=== PATIENT | male | born 1940 | race Caucasian/White ===

== ENCOUNTER → 2016-12-19 | Outpatient (CLI) | payer MEDICARE, BC | END | disposition home or self-care (01) | LOC: PCVCCLINIC 15:00 | PROVIDERS: ATTEND Internal Medicine | DX: I25.10 Atherosclerotic heart disease of native coronary artery without angina pectoris (principal); I10 Essential (primary) hypertension; E78.5 Hyperlipidemia, unspecified; I65.29 Occlusion and stenosis of unspecified carotid artery; Z95.1 Presence of aortocoronary bypass graft | CPT/HCPCS: 80061; 93005; G0463 ==

== ENCOUNTER → 2017-07-03 | Outpatient (CLI) | payer MEDICARE, BC ==
--- NOTE | 2017-07-03 13:35 | PCVCIMAG ---
APPROVED REPORT Indications Stenosis Risk Factors Hypertension: Hyperlipidemia Doppler Spectral Velocity Analysis PSV / EDVPSV / EDV ECA (R) 96 / 9 cm/sECA (L) 91 / 7 cm/s dICA (R) 58 / 14 cm/sdICA (L) 61 / 18 cm/s Foreign (R) 109 / 22 cm/smICA (L) 78 / 19 cm/s pICA (R) 91 / 19 cm/spICA (L) 75 / 16 cm/s Bulb (R) 52 / 12 cm/sBulb (L) 59 / 11 cm/s dCCA (R) 72 / 10 cm/sdCCA (L) 70 / 11 cm/s mCCA (R) 96 / 14 cm/smCCA (L) 96 / 11 cm/s Vert (R) 49 / 11 cm/sVert (L) 50 / 9 cm/s ICA/CCA 1.13ICA/CCA 0.81 Basic Measurements Blood Pressure: Pulses: Right Left RightLeft Brachial(Sitting) 120/57daOu840/70mmHgTemporal Real Time B-Mode Imaging Vert. (R)AntegradeVert. (L)Antegrade Findings The right carotid bulb has moderate heterogeneous plaque. The right proximal internal carotid artery shows <40% stenosis. The right common carotid artery shows no significant stenosis. The right external carotid artery shows no significant stenosis. The left carotid bulb has moderate calcified plaque. The left proximal internal carotid artery shows <40% stenosis. The left common carotid artery shows no significant stenosis. The left external carotid artery shows no significant stenosis. Conclusion 1. Right internal carotid artery stenosis (<40%) 2. Left internal carotid artery stenosis (<40%) 3. Antegrade vertebral flow
== END | disposition home or self-care (01) ==
LOC: PCVCIMAG 12:54
PROVIDERS: ATTEND Internal Medicine
DX: I65.23 Occlusion and stenosis of bilateral carotid arteries (principal); I25.10 Atherosclerotic heart disease of native coronary artery without angina pectoris; I10 Essential (primary) hypertension; M31.6 Other giant cell arteritis; E78.5 Hyperlipidemia, unspecified; Z95.1 Presence of aortocoronary bypass graft; Z79.899 Other long term (current) drug therapy; Z87.891 Personal history of nicotine dependence
CPT/HCPCS: 80061; 93005; 93880; G0463

== ENCOUNTER → 2019-09-07 | Outpatient (CLI) | payer MEDICARE, BC ==
--- NOTE | 2019-09-07 14:15 | PCVCIMAG ---
APPROVED REPORT Indications Stenosis Risk Factors Hypertension: Hyperlipidemia CAD Doppler Spectral Velocity Analysis PSV / EDVPSV / EDV ECA (R) 81 / 6 cm/sECA (L) 99 / 11 cm/s dICA (R) 67 / 18 cm/sdICA (L) 69 / 23 cm/s Foreign (R) 115 / 28 cm/smICA (L) 85 / 19 cm/s pICA (R) 99 / 19 cm/spICA (L) 97 / 22 cm/s Bulb (R) 64 / 12 cm/sBulb (L) 89 / 23 cm/s dCCA (R) 79 / 13 cm/sdCCA (L) 85 / 16 cm/s mCCA (R) 103 / 15 cm/smCCA (L) 90 / 17 cm/s Vert (R) 33 / 6 cm/sVert (L) 35 / 6 cm/s ICA/CCA 1.46ICA/CCA 1.14 Basic Measurements Blood Pressure: Pulses: Right Left RightLeft Brachial(Sitting) 128/83jdLc315/86mmHgTemporal Real Time B-Mode Imaging Vert. (R)AntegradeVert. (L)Antegrade Findings RIGHT CAROTID: The carotid bulb has moderate plaque. The proximal internal carotid artery shows <40% stenosis. The common carotid artery shows no significant stenosis. The external carotid artery shows no significant stenosis. LEFT CAROTID: The carotid bulb has moderate plaque. The proximal internal carotid artery shows <40% stenosis. The common carotid artery shows no significant stenosis. The external carotid artery shows no significant stenosis. Conclusion <40% stenosis of the right internal carotid artery with moderate plaque. <40% stenosis of the left internal carotid artery with moderate plaque. No change since June 2017 study.
--- NOTE | 2019-09-07 15:22 | PCVCIMAG ---
APPROVED REPORT Study performed: 09/07/2019 14:39:26 EXAM: Comprehensive 2D, Doppler, and color-flow Echocardiogram Patient Location: Echo lab Status: routine BSA: 1.82 HR: 56 bpmBP: 140/80 mmHg Rhythm: NSR Other Information Study Quality: Good Risk Factors: Cardiac Risk Factors: HTN, Hyperlipidemia Indications CAD CABG 2D Dimensions IVSd: 12.82 (7-11mm)LVOT Diam: 21.64 (18-24mm) LVDd: 44.59 mm PWd: 10.31 (7-11mm)Ascending Ao: 28.19 (22-36mm) LVDs: 29.09 (25-40mm) Left Atrium: 46.14 (27-40mm) Aortic Root: 31.39 mm LV Single Plane 4CH: 64.55 % LV Single Plane 2CH: 53.17 % Volumes Left Atrial Volume (Systole) Single Plane 4CH: 50.89 mLSingle Plane 2CH: 62.19 mL LA ESV Index: 32.00 mL/m2 Aortic Valve AoV Peak Johnie.: 1.27 m/s AO Peak Gr.: 6.44 mmHgLVOT Max P.73 mmHg LVOT Max V: 0.97 m/s ROLAN Vmax: 2.80 cm2 Mitral Valve E/A Ratio: 2.2 MV Decel. Time: 223.98 ms MV E Max Johnie.: 1.06 m/s MV A Johnie.: 0.48 m/s TDI E/Lateral E': 10.60E/Medial E': 15.14 Medial E' Johnie.: 0.07 m/s Lateral E' Johnie.: 0.10 m/s Pulmonary Valve PV Peak Gr.: 2.07 mmHg Pulmonary Vein P Vein S: 0.55 m/sP Vein A: 0.32 m/s P Vein D: 0.70 m/sP Vein A Dur.: 69.2 msec P Vein S/D Ratio: 0.79 Left Ventricle The left ventricle is normal size. There is normal LV segmental wall motion. There is normal left ventricular wall thickness. Left ventricular systolic function is normal. The left ventricular ejection fraction is within the normal range. LVEF is 60-65%. Severe diastolic dysfunction Right Ventricle The right ventricle is normal size. The right ventricular systolic function is normal. Atria The left atrium size is normal. The right atrium size is normal. Aortic Valve The aortic valve is mildly sclerotic. No aortic regurgitation is present. There is no aortic valvular stenosis. Mitral Valve The mitral valve is normal in structure. Trace mitral regurgitation. No evidence of mitral valve stenosis. Tricuspid Valve The tricuspid valve is normal in structure. There is no tricuspid valve regurgitation noted. Pulmonic Valve The pulmonary valve is normal in structure. There is no pulmonic valvular regurgitation. Great Vessels The aortic root is normal in size. IVC is normal in size and collapses >50% with inspiration. Pericardium There is no pericardial effusion. <Conclusion> Left ventricular systolic function is normal. There is normal LV segmental wall motion. LVEF is 60-65%. Severe diastolic dysfunction The aortic valve is mildly sclerotic. No aortic regurgitation or stenosis. The mitral valve is normal in structure. Trace mitral regurgitation Pulmonary artery systolic pressure could not be reliably ascertained. There is no pericardial effusion.
== END | disposition home or self-care (01) ==
LOC: PCVCIMAG 13:53
PROVIDERS: ATTEND Internal Medicine
DX: I65.23 Occlusion and stenosis of bilateral carotid arteries (principal); I25.10 Atherosclerotic heart disease of native coronary artery without angina pectoris; I10 Essential (primary) hypertension; E78.5 Hyperlipidemia, unspecified; Z95.1 Presence of aortocoronary bypass graft; Z79.82 Long term (current) use of aspirin; Z79.899 Other long term (current) drug therapy; Z87.891 Personal history of nicotine dependence
CPT/HCPCS: 93005; 93306; 93880; G0463